=== PATIENT | male | born 1990 | race Caucasian/White ===

== ENCOUNTER 2017-05-16 20:30 | Emergency (ER) | payer OTHER ==
[~2017-05-16] VITALS: Ht 182.9 cm; Wt 68.2 kg
[2017-05-16 20:30] VITALS: BP 131/52
[2017-05-16] MEDS ORDERED: POLY2.5S OU (21:48)
[2017-05-17] MEDS ORDERED: POLYTRIM OPTH DROPS 10ML OU SCH (09:00)
== END 2017-05-16 22:01 | disposition home or self-care (01) ==
LOC: M ED 20:30
DX: H10.9 Unspecified conjunctivitis (principal)